=== PATIENT | female | born 1945 | race Caucasian/White ===

== ENCOUNTER 2021-03-18 08:26 | Emergency (ER) | payer MEDICARE, SELFPAY ==
--- NOTE | ~2021-03-18 | CT_ITS ---
EXAMINATION: CT brain wo con DATE: 03/18/2021 09:23 INDICATION: Fall 2 days prior with posterior head injury with persistent pain. TECHNIQUE: Computed tomography (CT) of the head was performed without intravenous contrast. Sagittal and coronal reconstructions were performed. Automated exposure control and iterative reconstruction t echnique were employed. The dose-length product was 529.67 mGy-cm. COMPARISON: None FINDINGS: No fracture. No acute intracranial hemorrhage, acute infarction or abnormal extra axial fluid collect ion. There is mild scattered white matter hypoattenuation consistent with chronic small vessel ischem ic disease. Ventricles are normal and symmetric. No mass/mass effect. Changes of bilateral intraocula r lens replacement. The orbits, paranasal sinuses and mastoid air cells are normal. Intracranial calc ified cerebral atherosclerosis is noted. IMPRESSION: 1. No fracture or acute intracranial process. 2. Mild scattered white matter hypoattenuation consistent with chronic small vessel ischemic disease. Reviewed, dictated and finalized at location A. IMPRESSION: 1. No fracture or acute intracranial process. 2. Mild scattered white matter hypoattenuation consistent with chronic small ve ssel ischemic disease.
--- NOTE | ~2021-03-18 | XR_ITS ---
EXAMINATION: XR hip LT 2V w AP pelvis DATE: 03/18/2021 09:32 INDICATION: Left hip pain. Fall. TECHNIQUE: An anteroposterior view of the pelvis and 2 views of left hip were obtained. COMPARISON: None. FINDINGS: There is lumbar levoscoliosis and severe spondylosis. No fracture. There is mild osteoarthr itis of the hips. Densities overlying the parasymphyseal pubis on either side may be suture anchors. IMPRESSION: 1. Mild osteoarthritis of the hips. Reviewed, dictated and finalized at location B.
--- NOTE | ~2021-03-18 | CT_ITS ---
EXAMINATION: CT cervical spine wo con DATE: 03/18/2021 09:23 INDICATION: Neck pain. Head injury. TECHNIQUE: Computed tomography (CT) of the cervical spine was performed without intravenous contrast. Automated exposure control and iterative reconstruction technique were employed. The dose-length pro duct was 326.73 mGy-cm. COMPARISON: None FINDINGS: There is kyphosis of cervical spine. There is 2 mm anterolisthesis of C3 on C4 and 3 mm ant erolisthesis of C4 on C5. There is 2 mm retrolisthesis of C6 on C7. Vertebral body heights are normal . There is mildly decreased disc height at C3-C4 and severely decreased disc height from C4-C5 throug h C7-T1. The following disc levels are specifically discussed: C2-C3: There is no uncovertebral joint osteoarthritis. There is mild right and severe left facet join t osteoarthritis. There is no neural foraminal stenosis. There is no central canal stenosis. C3-C4: There is moderate right and mild left uncovertebral joint osteoarthritis. There is moderate ri ght and severe left facet joint osteoarthritis. There is mild bilateral neural foraminal stenosis. Th ere is mild central canal stenosis. C4-C5: There is severe right and moderate left uncovertebral joint osteoarthritis. There is severe bi lateral facet joint osteoarthritis. There is mild bilateral neural foraminal stenosis. There is mild central canal stenosis. C5-C6: There is severe bilateral uncovertebral joint osteoarthritis. There is no facet joint osteoart hritis. There is mild bilateral neural foraminal stenosis. There is mild central canal stenosis. C6-C7: There is severe bilateral uncovertebral joint osteoarthritis. There is mild right and moderate left facet joint osteoarthritis. There is mild bilateral neural foraminal stenosis. There is mild ce ntral canal stenosis. C7-T1: There is severe right and moderate left uncovertebral joint osteoarthritis. There is severe bi lateral facet joint osteoarthritis. There is moderate right and mild left neural foraminal stenosis. There is mild central canal stenosis. IMPRESSION: 1. No fracture. 2. Severe cervical spondylosis. Reviewed, dictated and finalized at location B.
--- NOTE | 2021-03-18 08:41 | ED.FALL ---
HPI - Fall General Chief Complaint: Fall Stated Complaint: fell in shower Time Seen by Provider: 03/18/21 08:41 History of Present Illness HPI Narrative: 75 yo female presents after a fall. She reports that she slipped stepping into the shower this morning. She landed on her left hip and also struck her head in the fall. She has been able to ambulate since the fall, but has moderate pain and swelling in the left hip/buttock. She has a mild headache as well as left sided neck pain. No LOC, weakness, numbness, confusion, wound. No blood thinners Related Data Allergies Allergy/AdvReac Type Severity Reaction Status Date / Time levofloxacin [From Levaquin] AdvReac Agitated Verified 03/18/21 08:52 Review of Systems Review of Systems: All systems reviewed & are unremarkable except as noted in HPI and below Constitutional: Constitutional: Denies chills, Denies fever(s) and Denies weakness Eyes: Eyes: Reports no additional eye complaints ENT: Denies dizziness Cardiovascular: Cardiovascular: Denies chest pain Respiratory: Respiratory: Denies dyspnea Gastrointestinal: Gastrointestinal: Denies nausea Genitourinary: Genitourinary: Reports no additional female genitourinary complaints Musculoskeletal: Musculoskeletal: Reports back pain Neurologic: Denies confusion, Denies dizziness, Denies syncope, Reports headache(s) and Denies weakness Hematologic/Lymphatic: Hematologic/Lymphatic: Denies easy bleeding and Denies easy bruising [facility] Past Medical History Medical History (Updated 03/22/21 @ 09:43 by Rudolph Ramirez MD) Arthritis Social History Social History Gender identity (if verbalized by the patient): Female Exam Const: General: healthy appearing, no acute distress and alert Orientation/consciousness: patient oriented x3 HENMT: Head: normal to inspection Ears: TM's normal bilaterally and EAC's normal Face and sinus: normal facial exam Eyes: Pupils: Equal, round and reactive pupils present EOM: EOMs intact bilaterally Neck: Neck: normal visual inspection Resp: Effort & Inspection: normal respiratory effort Auscultation: clear to auscultation bilaterally Cardio: Rate: regular rate Rhythm: regular rhythm GI: GI Palp: Yes Soft to palpation and No Tenderness to palpation present (GI) Back/Spine/Pelvis: Other: nontender Skin: General skin exam: normal color Wounds: no wounds Neuro: General: patient oriented x3, moves all extremities, no focal motor deficits and CN's II-XI intact bilaterally Speech: normal speech Gait exam (Neuro): Normal gait present Extrem: Other: tenderness and swelling posterior to greater trochanter of left femur Course Vital Signs Vital signs: Vital Signs Temperature 36.6 C 03/18/21 08:44 Pulse Rate 74 03/18/21 08:44 Respiratory Rate 20 03/18/21 08:44 Blood Pressure 166/85 H 03/18/21 08:44 Pulse Oximetry 98 03/18/21 08:44 Temperature 36.6 C 03/18/21 08:44 Pulse Rate 66 03/18/21 10:26 Respiratory Rate 20 03/18/21 10:26 Blood Pressure 140/71 03/18/21 10:26 Pulse Oximetry 98 03/18/21 10:26 MDM - Fall MDM Narrative Medical decision making narrative: Imaging negative. Pain is tolerable and she is not requesting anything at this time. Differential Diagnosis Differential diagnosis: Likely other (hip/pelvic fracture, cervical spine injury, SDH, SAH) Medical Records Attestation: I reviewed the patient's medical records. Imaging Data Radiologist's impression: ITS Impressions Cervical Spine CT 03/18/21 09:29 IMPRESSION: 1. No fracture. 2. Severe cervical spondylosis. Head CT 03/18/21 09:29 IMPRESSION: 1. No fracture or acute intracranial process. 2. Mild scattered white matter hypoattenuation consistent with chronic small vessel ischemic disease. Hip/Pelvis X-Ray 03/18/21 09:35 IMPRESSION: 1. Mild osteoarthritis of the hips. Discharge Plan Discharge Clinical Impression: Contusion of left
[2021-03-18 08:44] VITALS: BP 166/85; PULSE 74; RESP 20; TEMP 36.6; O2SAT 98
[2021-03-18 10:26] VITALS: BP 140/71; PULSE 66; RESP 20; O2SAT 98
== END 2021-03-18 10:28 | disposition home or self-care (01) ==
PROVIDERS: Emergency Provider Emergency Medicine
DX: S70.02XA Contusion of left hip, initial encounter (principal); S09.90XA Unspecified injury of head, initial encounter; M19.90 Unspecified osteoarthritis, unspecified site; M16.0 Bilateral primary osteoarthritis of hip; M47.812 Spondylosis without myelopathy or radiculopathy, cervical region; W18.2XXA Fall in (into) shower or empty bathtub, initial encounter
CPT/HCPCS: 70450; 72125; 73502; 99283; 99284; L0140